=== PATIENT | female | born 1945 | race Caucasian/White ===

== ENCOUNTER → 2017-06-14 18:11 | Outpatient (CLI) | payer OTHER ==
[2013-12-28 07:57] VITALS: BMI 34.0
[~2017-06-14 18:11] MED LIST: HYZAAR 100-25 T1 TAB PO; XANAX1 MG PO; ZANAFLEX4 MG PO
== END | disposition home or self-care (01) ==
LOC: D.MAMMO 14:45
DX: Z12.31 Encounter for screening mammogram for malignant neoplasm of breast (principal)

== ENCOUNTER 2017-06-24 18:51 | Emergency (ER) | payer OTHER ==
[2013-12-28 07:57] VITALS: BMI 34.0
== END 2017-06-24 21:12 | disposition home or self-care (01) ==
LOC: D.ER 18:51
DX: S16.1XXA Strain of muscle, fascia and tendon at neck level, initial encounter (principal); V49.9XXA Car occupant (driver) (passenger) injured in unspecified traffic accident, initial encounter; Y93.89 Activity, other specified; Y92.410 Unspecified street and highway as the place of occurrence of the external cause; S29.012A Strain of muscle and tendon of back wall of thorax, initial encounter; S39.012A Strain of muscle, fascia and tendon of lower back, initial encounter; I10 Essential (primary) hypertension

== ENCOUNTER → 2019-05-29 12:00 | Outpatient (CLI) | payer MEDICARE, OTHER ==
[2013-12-28 07:57] VITALS: BMI 34.0
== END | disposition home or self-care (01) ==
LOC: D.MAMMO 12:00
PROVIDERS: ATTEND Family Medicine
DX: Z12.31 Encounter for screening mammogram for malignant neoplasm of breast (principal)